=== PATIENT | female | born 1955 | race Caucasian/White ===

== ENCOUNTER 2023-04-21 13:26 | Emergency (ER) | payer OTHER ==
[~2023-04-21] VITALS: Ht 172.7 cm; Wt 89.8 kg
[2023-04-21 13:35] VITALS: BP 180/90; PULSE 79; RESP 14; TEMP 98.2; O2SAT 81
[2023-04-21 14:22] LABS: BASOPHILS # (AUTO) 0.1 K/uL (0.00-0.22); BASOPHILS % (AUTO) 0.5 % (0.0-2.0); EOSINOPHILS % (AUTO) 0.1 % (0.0-4.0); HEMATOCRIT 38.4 % (36-48); HEMOGLOBIN 13.3 g/dL (12.0-16.0); LYMPHOCYTES # (AUTO) 1.9 K/uL (2.5-16.5); LYMPHOCYTES % (AUTO) 19.1 % (20.5-51.1); MEAN CORPUSCULAR HEMOGLOBIN 35 pg (27-31); MEAN CORPUSCULAR HGB CONC 35 g/dL (33-37); MEAN CORPUSCULAR VOLUME 101.6 fL (80-94); MONOCYTES # (AUTO) 0.6 K/uL (0.8-1.0); MONOCYTES % (AUTO) 6.4 % (1.7-9.3); NEUTROPHILS # (AUTO) 7.3 K/uL (1.8-7.7); NEUTROPHILS % (AUTO) 73.9 % (42.2-75.2); PLATELET COUNT (AUTO) 228 K/uL (140-450); RED BLOOD CELL COUNT(AUTO) 3.78 MIL/uL (4.20-5.40); RED CELL DISTRIBUTION WIDTH 13.2 % (11.6-13.7); WHITE BLOOD COUNT (AUTO) 9.9 K/uL (4.8-10.8)
[2023-04-21 14:47] LABS: ALBUMIN 4.1 g/dL (3.4-5.0); CALCIUM 9.4 mg/dL (8.5-10.1); CARBON DIOXIDE 28.4 mmol/L (21-32); CREATININE 0.9 mg/dL (0.6-1.3); POTASSIUM 3.4 mmol/L (3.5-5.1); TOTAL BILIRUBIN 0.5 mg/dL (0.0-1.0); TOTAL PROTEIN, SERUM 7.1 g/dL (6.4-8.2)
[2023-04-21] MEDS ORDERED: DOCU-3 PO (19:01)
[2023-04-21] MEDS ORDERED: [UNRECOGNIZED DRUG - CODE] PO (19:01)
[2023-04-21] MEDS ORDERED: ADAL40PE2 SUBQ (19:01)
[2023-04-21] MEDS ORDERED: FOLI1TAB90 PO (19:01)
[2023-04-21] MEDS ORDERED: PARO10TA8 PO (19:01)
[2023-04-21] MEDS ORDERED: METH-1878 PO (19:01)
[2023-04-21] MEDS ORDERED: ATOR10TA51 PO (19:01)
[2023-04-21] MEDS ORDERED: DOXY-469 PO (19:01)
[2023-04-21] MEDS ORDERED: LEUC10TA PO (19:01)
[2023-04-21] MEDS ORDERED: METH25VI SUBQ (19:01)
[2023-04-21] MEDS ORDERED: TIZA-313 PO (19:01)
[2023-04-21] MEDS ORDERED: TRAZ-471 PO (19:01)
[2023-04-21] MEDS ORDERED: LISI20TA29 PO (19:01)
[2023-04-21] MEDS ORDERED: [UNRECOGNIZED DRUG - CODE] PO (19:01)
[2023-04-21] MEDS ORDERED: ASPI-1822 PO (19:35)
[2023-04-21] MEDS ORDERED: CLOP-68 PO (19:36)
[2023-04-21] MEDS ORDERED: CLOPIDOGREL 75 MG TAB PO ONE (19:40)
[2023-04-21 20:10] VITALS: BP 141/86; PULSE 75; RESP 18; TEMP 98.2; O2SAT 97
== END 2023-04-21 20:10 | disposition home or self-care (01) ==
LOC: MED 13:26
DX: M79.602 Pain in left arm (principal); G45.9 Transient cerebral ischemic attack, unspecified; Z79.899 Other long term (current) drug therapy
CPT/HCPCS: 36415; 70450; 70496; 70498; 71045; 80053; 83880; 84484; 85025; 93005; 99285; Q9967